=== PATIENT | male | born 1985 | race Caucasian/White ===

== ENCOUNTER 2018-08-14 08:00 | Emergency (ER) | payer SELFPAY ==
[~2018-08-14] VITALS: Ht 170.2 cm; Wt 82.7 kg
[2018-08-14] MEDS ORDERED: ALPR0.5T8 PO (08:09)
[2018-08-14 09:25] VITALS: BP 148/98
== END 2018-08-14 09:33 | disposition home or self-care (01) ==
LOC: EMS 08:00
DX: F10.229 Alcohol dependence with intoxication, unspecified (principal); R03.0 Elevated blood-pressure reading, without diagnosis of hypertension; F41.9 Anxiety disorder, unspecified; F12.90 Cannabis use, unspecified, uncomplicated; Z79.899 Other long term (current) drug therapy; Y90.0 Blood alcohol level of less than 20 mg/100 ml
CPT/HCPCS: 36415; 99283; G0480

== ENCOUNTER 2022-05-12 19:24 | Emergency (ER) | payer BC ==
[~2022-05-12 19:24] MED LIST: ALPR-707 PO
== END 2022-05-12 20:36 | disposition left against medical advice (07) ==
LOC: EMS 19:41
DX: Z53.21 Procedure and treatment not carried out due to patient leaving prior to being seen by health care provider (principal)

== ENCOUNTER 2023-04-04 16:55 | Emergency (ER) | payer BC, MEDICAID ==
[~2023-04-04] VITALS: Ht 170.2 cm; Wt 79.5 kg
[2023-04-04 17:01] VITALS: BP 153/94; PULSE 97; RESP 16; TEMP 97.7
== END 2023-04-04 19:30 | disposition home or self-care (01) ==
LOC: EMS 16:57
DX: F10.20 Alcohol dependence, uncomplicated (principal); F41.9 Anxiety disorder, unspecified; F12.90 Cannabis use, unspecified, uncomplicated; Z90.49 Acquired absence of other specified parts of digestive tract; Y90.9 Presence of alcohol in blood, level not specified
CPT/HCPCS: 99281; Z7502

== ENCOUNTER 2024-10-27 03:07 | Emergency (ER) | payer MEDICAID ==
[~2024-10-27] VITALS: Ht 175.3 cm; Wt 75.0 kg
[2024-10-27 03:16] VITALS: BP 148/98; PULSE 90; RESP 16; O2SAT 98
[2024-10-27 04:20] LABS: PH,URINE DRUG SCREEN 5.5 (5.0-8.0)
[2024-10-27 04:27] LABS: ALCOHOL, URINE DRUG SCREEN NEGATIVE (NEGATIVE); AMPHET/METH SCREEN,URINE POSITIVE (NEGATIVE); BARBITURATE SCREEN, URINE NEGATIVE (NEGATIVE); CANNABINOID SCREEN,URINE NEGATIVE (NEGATIVE); COCAINE SCREEN,URINE NEGATIVE (NEGATIVE); METHADONE SCREEN, URINE NEGATIVE (NEGATIVE)
[2024-10-27] MEDS ORDERED: CHLO25CA6 PO (04:54)
== END 2024-10-27 05:08 | disposition home or self-care (01) ==
LOC: EMS 03:07
DX: F15.10 Other stimulant abuse, uncomplicated (principal); F41.9 Anxiety disorder, unspecified; F12.90 Cannabis use, unspecified, uncomplicated; F10.90 Alcohol use, unspecified, uncomplicated; F17.220 Nicotine dependence, chewing tobacco, uncomplicated; Z90.49 Acquired absence of other specified parts of digestive tract; Z79.899 Other long term (current) drug therapy; Y90.9 Presence of alcohol in blood, level not specified
CPT/HCPCS: 80307; 99283